=== PATIENT | male | born 1955 | race Caucasian/White ===

== ENCOUNTER 2022-11-03 19:26 | Outpatient (CLI) | payer MEDICARE, SELFPAY ==
--- NOTE | 2022-11-10 12:24 | W.PM.SLEEP ---
Sleep Study Details Details Interpreting Provider: Nirali Date of Sleep Study: 11/03/22 Sleep Study Details: STUDY TYPE:? Home ? BMI:? Not recorded ORDERING PROVIDER:? Nirali INDICATION:? Concerns about sleep apnea ? SLEEP SUMMARY:? 405.5 minutes monitored RESPIRATORY SUMMARY:? AHI 53.4-supine 104.5, left lateral 35.8, right lateral 2.4 Low oxygen 85 2.7% of study oxygen less than 90% Snoring 3.6% PERIODIC LIMB MOVEMENTS OF SLEEP:? Not recorded CARDIAC:? Range 51-93, mean 63.3. Patient did have a high heart rate of 236 noted during time in bed. IMPRESSION:? High heart rate noted during time in bed. Holter monitor may be indicated. Severe obstructive sleep apnea that appears to be dependent on supine and left lateral positions. Interestingly in the right lateral position patient had minimal apnea. It is not clear few was awake or asleep during that time. RECOMMENDATION: In-lab titration because of elevated heart rate noted. Further cardiac evaluation such as Holter monitor may be indicated.
== END 2022-11-03 19:27 | disposition home or self-care (01) ==
LOC: SLEEP 19:26
PROVIDERS: Visit Provider Otolaryngology
DX: G47.33 Obstructive sleep apnea (adult) (pediatric) (principal)
CPT/HCPCS: 95806